=== PATIENT | male | born 1995 | race Caucasian/White ===

== ENCOUNTER 2016-10-16 05:51 | Emergency (ER) | payer OTHER ==
[~2016-10-16] VITALS: Ht 190.5 cm; Wt 72.0 kg
[2016-10-16 05:55] VITALS: BP 118/65; PULSE 64; RESP 16; TEMP 98.1; O2SAT 100
[2016-10-16] MEDS ORDERED: SODIUM CHLOR 0.9% 1000 ML INJ 1,000 ML IV ONE (06:08)
[2016-10-16 06:15] VITALS: BP_SYST 104; BP_SYST 105; BP_SYST 118; BP_DIAS 56; BP_DIAS 68; RESP 18; O2SAT 100
[2016-10-16] MEDS ORDERED: SODIUM CHLORIDE 0.9% FLUSH 10 ML FLUSH IVF PRN (06:15)
--- NOTE | 2016-10-16 06:16 | PD ---
HPI Chief Complaint: Syncope/Near-Syncope Time Seen by Provider: 05:58 Travel History International Travel<30 days: No Contact w/Intl Traveler<30days: No Traveled to known affect area: No History of Present Illness HPI The patient is a 21-year-old male who apparently fainted at [facility]. He was standing in one position for 1 minute. He then got dizzy and fainted. Apparently, he tried to get up and fainted again. He does not remember trying to get up and fading the second time. He did bump his head on the right parietal area. He has very little pain in this area and no headache. He denies any fever, sore throat, chest pain, shortness of breath, melanotic or bloody stools, ear pain, sore throat vomiting, diarrhea, headache, dysuria, frequency, urgency or palpitations. He does remember feeling slightly nauseated before he fainted. He does not feel nauseated now. Apparently, he was given Zofran in the ambulance. He does not have a history of syncopal spells. He denies any heart murmur. He denies any diaphoresis before he fainted. He does not have a history of diabetes. He denies any focal neurologic change. He denies any visual changes or scotomata. He states he felt dehydrated when he was in [facility] before he fainted. There were people around him when he fainted and apparently there was no seizure activity and no postictal state. He does not use drugs and denies drinking any alcohol tonight. PFSH Past Medical History Medical other: Yes (traumatic brain injury 2012) Tetanus Vaccination: < 5 Years Influenza Vaccination: Yes Past Surgical History Surgical History: No Previous Surgery Social History Alcohol Use: No Tobacco Use: No Substance Use: No Allergies-Medications (Allergen,Severity, Reaction): Coded Allergies: No Known Allergies (Unverified , 10/16/16) Reported Meds & Prescriptions Reported Meds & Active Scripts Active No Active Prescriptions or Reported Medications Review of Systems Except as stated in HPI: all other systems reviewed are Neg Physical Exam Narrative GENERAL: The patient is alert, oriented 3 in no apparent distress. His vital signs are normal. He does not appear anemic. SKIN: Focused skin assessment warm/dry. HEAD: There is a 2 cm bruise which appears minimal and shallow on the right parietal area and there is no associated skull deformity.. Normocephalic. Neither raccoon eyes or galdamez sign is present. EYES: Pupils equal and round. No scleral icterus. No injection or drainage. ENT: No nasal bleeding or discharge. Mucous membranes pink and moist. No hemotympanum is present. NECK: Trachea midline. No JVD. No Posterior spinous process tenderness or deformity is present. CARDIOVASCULAR: Regular rate and rhythm. No murmur appreciated. RESPIRATORY: No accessory muscle use. Clear to auscultation. Breath sounds equal bilaterally. GASTROINTESTINAL: Abdomen soft, non-tender, nondistended. Hepatic and splenic margins not palpable. MUSCULOSKELETAL: No obvious deformities. No clubbing. No cyanosis. No edema. NEUROLOGICAL: Awake and alert. No obvious cranial nerve deficits. Motor grossly within normal limits. Normal speech. PSYCHIATRIC: Appropriate mood and affect; insight and judgment normal. Data Data Last Documented VS Vital Signs Date Time Temp Pulse Resp B/P Pulse Ox O2 Delivery O2 Flow Rate FiO2 10/16/16 07:00 74 16 123/68 100 Room Air 10/16/16 05:55 98.1 Orders Electrocardiogram (10/16/16 06:08) Complete Blood Count With Diff (10/16/16 06:08) Comprehensive Metabolic Panel (10/16/16 06:08) Magnesium (Mg) (10/16/16 06:08) Urinalysis - C+S If Indicated (10/16/16 06:08) Ecg Monitoring (10/16/16 06:08) Iv Access Insert/Monitor (10/16/16 06:08) Oximetry (10/16/16 06:08) Sodium Chloride 0.9% Flush (Ns Flush) (10/16/16 06:15) Sodium Chlor 0.9% 1000 Ml Inj (Ns 1000 M (10/16/16 06:08) Orthostatic Vital Signs (10/16/16 06:08) Heparin Central Flush (Heparin Central F (10/16/16 07:00) Labs Laboratory Tests Test 10/16/16 06:16 White Blood Count 2.9 TH/MM3 Red Blood Count 5.20 MIL/MM3 Hemoglobin 13.7 GM/DL Hematocrit 41.8 % Mean Corpuscular Volume 80.4 FL Mean Corpuscular Hemoglobin 26.4 PG Mean Corpuscular Hemoglobin 32.8 % Concent Red Cell Distribution Width 12.6 % Platelet Count 136 TH/MM3 Mean Platelet Volume 7.8 FL Neutrophils (%) (Auto) % Lymphocytes (%) (Auto) % Monocytes (%) (Auto) % Eosinophils (%) (Auto) % Basophils (%) (Auto) % Neutrophils # (Auto) TH/MM3 Lymphocytes # (Auto) TH/MM3 Monocytes # (Auto) TH/MM3 Eosinophils # (Auto) TH/MM3 Basophils # (Auto) TH/MM3 CBC Comment AUTO DIFF Differential Total Cells 100 Counted Neutrophils % (Manual) 63 % Band Neutrophils % 7 % Lymphocytes % 16 % Monocytes % 11 % Eosinophils % 2 % Basophils % 1 % Neutrophils # (Manual) 2.0 TH/MM3 Differential Comment FINAL DIFF MANUAL Platelet Estimate LOW Platelet Morphology Comment NORMAL Red Cell Morphology Comment NORMAL Sodium Level 138 MEQ/L Potassium Level 3.5 MEQ/L Chloride Level 103 MEQ/L Carbon Dioxide Level 25.6 MEQ/L Anion Gap 9 MEQ/L Blood Urea Nitrogen 17 MG/DL Creatinine 0.88 MG/DL Estimat Glomerular Filtration 110 ML/MIN Rate Random Glucose 105 MG/DL Calcium Level 8.5 MG/DL Magnesium Level 1.9 MG/DL Total Bilirubin 0.6 MG/DL Aspartate Amino Transf 27 U/L (AST/SGOT) Alanine Aminotransferase 23 U/L (ALT/SGPT) Alkaline Phosphatase 85 U/L Total Protein 6.8 GM/DL Albumin 3.5 GM/DL MDM Medical Decision Making Medical Screen Exam Complete: Yes Emergency Medical Condition: Yes Medical Record Reviewed: Yes Interpretation(s) The CBC shows white count of 2900 with a platelet count of 136,000. It is otherwise unremarkable. The complete metabolic profile is normal. The EKG shows sinus rhythm with rate of 75 and is normal. Differential Diagnosis Syncope due to: Dehydration, viral syndrome, dysrhythmia, seizure, hypoglycemia , vasovagal phenomena, electrolyte disorder, anemia, anxiety/hyperventilation, drug/alcohol abuse Narrative Course The patient has no history of viral syndrome and he is not anxious. There is no history of any dysrhythmia, seizure or GI blood loss. He was slightly nauseated before the event and a vasovagal effect was likely present. The fact that he was standing in one position and not moving his legs could mean that he did not have adequate blood return from the lower extremities because he was not moving his muscles. This combined with dehydration, which the patient states he was, probably did contribute to the syncopal spell. There was no history of seizure, postictal event, or neurologic phenomena. Hypoglycemia is unlikely without diaphoresis and because he was very alert prior to the syncopal spell. Diagnosis Primary Impression: Episode of syncope Additional Instructions: Continue to hydrate herself. Avoid standing in one position for prolonged periods of time because this reduces the blood return to your heart. Your white count is low, this often means a virus. Your platelet count is slightly low, again this may mean a virus. Med/Other Pt SpecificInfo: No Change to Meds Scripts No Active Prescriptions or Reported Meds Disposition: 01 DISCHARGE HOME Condition: Stable Jayson Salinas MD Oct 16, 2016 06:16
[2016-10-16 06:40] LABS: HEMATOCRIT 41.8 % (39.0-51.0); MEAN CELL VOLUME 80.4 FL (80.0-100.0); MEAN CORPUSCULAR HEMOGLOBIN 26.4 PG (27.0-34.0); MEAN CORPUSCULAR HGB CONC 32.8 % (32.0-36.0); PLATELET COUNT 136 TH/MM3 (150-450); RED CELL DISTRIBUTION WIDTH 12.6 % (11.6-17.2); WHITE BLOOD COUNT 2.9 TH/MM3 (4.0-11.0)
[2016-10-16 06:43] LABS: CHLORIDE 103 MEQ/L (98-107); HEMO FLAGS AUTO DIFF; POTASSIUM 3.5 MEQ/L (3.5-5.1); SODIUM (NA) 138 MEQ/L (136-145)
[2016-10-16 06:47] LABS: ANION GAP 9 MEQ/L (5-15); BICARBONATE 25.6 MEQ/L (21.0-32.0); BLOOD UREA NITROGEN 17 MG/DL (7-18); MAGNESIUM 1.9 MG/DL (1.5-2.5)
[2016-10-16 06:50] LABS: ALT (GPT) 23 U/L (9-52); AST (GOT) 27 U/L (15-39); GLOMERULAR FILTRATION RATE 110 ML/MIN (>89)
[2016-10-16 06:51] LABS: TOTAL BILIRUBIN ADULT 0.6 MG/DL (0.2-1.0)
[2016-10-16 06:53] LABS: ALKALINE PHOSPHATASE 85 U/L (45-117)
[2016-10-16 07:00] VITALS: BP 123/68; PULSE 74; RESP 16; O2SAT 100
[2016-10-16 07:06] LABS: BANDS 7 % (0-6); BASOPHILS 1 % (0-2); EOSINOPHILS 2 % (0-4); PLATELET ESTIMATE SMEAR LOW (NORMAL); PLATELET MORPHOLOGY NORMAL (NORMAL); POLYS (SEG NEUTROPHILS) 63 % (16-70); SCAN/DIFF FINAL DIFF MANUAL; WBC DIFF SAMPLE 100
[2016-10-16 07:30] LABS: BLOOD, URINE NEG (NEG); GLUCOSE,URINE NEG (NEG); KETONE, URINE 15 mg/dL (NEG); NITRITE,URINE NEG (NEG)
[2016-10-16 07:50] LABS: METHOD OF COLLECTION CLEAN CATCH; URINE COLOR YELLOW (YELLW/STRAW)
[2016-10-16 07:51] LABS: COMMENT (UR) CULT NOT INDICATED; COMMENT2 (UR) MUCOUS PRESENT; CULTURE IF INDICATED CULT NOT INDICATED; SQUAMOUS EPITHELIAL CELL URINE 0-5 /hpf (0-5); WBC, URINE 0-2 /hpf (0-5)
--- NOTE | 2016-10-16 12:21 | EKG ---
Date Performed: 10/16/2016 Time Performed: 06:28:23 PTAGE: 21 years EKG: Sinus rhythm NORMAL ECG NO PREVIOUS TRACING DOCTOR: Jimi Jimenez Interpretating Date/Time 10/16/2016 12:18:10
== END 2016-10-16 07:47 | disposition home or self-care (01) ==
LOC: PHED 05:51
DX: R55 Syncope and collapse (principal); S00.03XA Contusion of scalp, initial encounter; R11.0 Nausea; D72.819 Decreased white blood cell count, unspecified; D69.6 Thrombocytopenia, unspecified; Z87.820 Personal history of traumatic brain injury; W22.8XXA Striking against or struck by other objects, initial encounter; Y92.512 Supermarket, store or market as the place of occurrence of the external cause
CPT/HCPCS: 80053; 81001; 83735; 85007; 85027; 93005; 96360; 99285; J7030